=== PATIENT | female | born 1970 | race Hispanic/Latino ===

== ENCOUNTER 2019-06-24 21:04 | Observation (INO) | payer OTHER, SELFPAY ==
[2019-06-24] MEDS ORDERED: ASPIRIN 81 MG CHEWABLE TABLET ONE (21:37)
[2019-06-24] MEDS ORDERED: FAMOTIDINE 20 MG/2 ML VIAL IV ONE (21:37)
--- NOTE | 2019-06-24 21:41 | EDPHYS ---
Physician Documentation [facility] Name: Natalia Amaral Age: 48 yrs Sex: Female : 1970 Arrival Date: 06/24/2019 Time: 21:05 Bed 13 Private MD: VALERIA Physician David Marquez HPI: 06/24 21:21 This 48 yrs old Female presents to ER via Wheelchair with complaints of Chest brianda Pain. 21:21 The patient or guardian reports chest pain that is located primarily in the substernal brianda area. Onset: 1 day(s) ago. The pain radiates to Associated signs and symptoms: The patient has no apparent associated signs or symptoms. The chest pain is described as a heaviness, a pressure. Duration: The patient or guardian reports multiple episodes, with no pattern. Modifying factors: The symptoms are alleviated by nothing. the symptoms are aggravated by nothing. breathing. Severity of pain: At its worst the pain was mild moderate in the emergency department the pain has improved mildly. The patient has not experienced similar symptoms in the past. Historical: - Allergies: 21:21 No Known Allergies; ca1 - Home Meds: 21:21 glimepiride oral [Active]; metformin 500 mg Oral tab 1 tab 2 times per day [Active]; ca1 venlafaxine 150 mg Oral tr24 1 tab once daily [Active]; - PMHx: 21:21 Anemia; Depression; Diabetes - NIDDM; Ovarian cyst; ca1 - PSHx: 21:21 ablation; Cholecystectomy; ca1 - Immunization history:: Adult Immunizations up to date, Pneumococcal vaccine is not up to date, Flu vaccine is not up to date. - Social history:: Smoking status: Patient uses tobacco products, smokes one pack cigarettes per day. - Ebola Screening: : Patient negative for fever greater than or equal to 101.5 degrees Fahrenheit, and additional compatible Ebola Virus Disease symptoms Patient denies exposure to infectious person Patient denies travel to an Ebola-affected area in the 21 days before illness onset No symptoms or risks identified at this time. - Family history:: not pertinent. ROS: 21:21 Constitutional: Negative for fever, chills, and weight loss, Eyes: Negative for injury, brianda pain, redness, and discharge, ENT: Negative for injury, pain, and discharge, Neck: Negative for injury, pain, and swelling, Abdomen/GI: Negative for abdominal pain, nausea, vomiting, diarrhea, and constipation, Back: Negative for injury and pain, : Negative for injury, bleeding, discharge, and swelling, MS/Extremity: Negative for injury and deformity, Skin: Negative for injury, rash, and discoloration, Neuro: Negative for headache, weakness, numbness, tingling, and seizure, Psych: Negative for depression, anxiety, suicide ideation, homicidal ideation, and hallucinations, Allergy/Immunology: Negative for hives, rash, and allergies, Endocrine: Negative for neck swelling, polydipsia, polyuria, polyphagia, and marked weight changes, Hematologic/Lymphatic: Negative for swollen nodes, abnormal bleeding, and unusual bruising. 21:21 Cardiovascular: Positive for chest pain. 21:21 Respiratory: Positive for pleurisy, of the chest, shortness of breath. Exam: 21:21 Constitutional: This is a well developed, well nourished patient who is awake, alert, brianda and in no acute distress. Head/Face: Normocephalic, atraumatic. Eyes: Pupils equal round and reactive to light, extra-ocular motions intact. Lids and lashes normal. Conjunctiva and sclera are non-icteric and not injected. Cornea within normal limits. Periorbital areas with no swelling, redness, or edema. ENT: Nares patent. No nasal discharge, no septal abnormalities noted. Tympanic membranes are normal and external auditory canals are clear. Oropharynx with no redness, swelling, or masses, exudates, or evidence of obstruction, uvula midline. Mucous membranes moist. Neck: Trachea midline, no thyromegaly or masses palpated, and no cervical lymphadenopathy. Supple, full range of motion without nuchal rigidity, or vertebral point tenderness. No Meningismus. Chest/axilla: Normal chest wall appearance and motion. Nontender with no deformity. No lesions are appreciated. Cardiovascular: Regular rate and rhythm with a normal S1 and S2. No gallops, murmurs, or rubs. Normal PMI, no JVD. No pulse deficits. Respiratory: Lungs have equal breath sounds bilaterally, clear to auscultation and percussion. No rales, rhonchi or wheezes noted. No increased work of breathing, no retractions or nasal flaring. Abdomen/GI: Soft, non-tender, with normal bowel sounds. No distension or tympany. No guarding or rebound. No evidence of tenderness throughout. Back: No spinal tenderness. No costovertebral tenderness. Full range of motion. Skin: Warm, dry with normal turgor. Normal color with no rashes, no lesions, and no evidence of cellulitis. MS/ Extremity: Pulses equal, no cyanosis. Neurovascular intact. Full, normal range of motion. Neuro: Awake and alert, GCS 15, oriented to person, place, time, and situation. Cranial nerves II-XII grossly intact. Motor strength 5/5 in all extremities. Sensory grossly intact. Cerebellar exam normal. Normal gait. Psych: Awake, alert, with orientation to person, place and time. Behavior, mood, and affect are within normal limits. 21:21 Musculoskeletal/extremity: DVT Exam: No signs of deep vein thrombosis. no pain, no swelling, no tenderness, negative Homans' sign noted on exam, no appreciated bluish discoloration, no erythema, no increased warmth. Vital Signs: 21:21 BP 135 / 82; Pulse 88; Resp 16 S; Temp 98.3(O); Pulse Ox 98% on R/A; Weight 104.33 kg ca1 (R); Height 5 ft. 7 in. (170.18 cm) (R); Pain 7/10; 22:00 BP 125 / 76; Pulse 78; Resp 16; Pulse Ox 99% on R/A; dm5 22:45 BP 139 / 77; Pulse 79; Resp 16; Pulse Ox 100% on R/A; dm5 23:30 BP 140 / 88; Pulse 78; Resp 16; Pulse Ox 98% on R/A; dm5 06/25 00:33 Temp 98.2(O); lp1 06/24 21:21 Body Mass Index 36.02 (104.33 kg, 170.18 cm) ca1 MDM: 06/24 21:[address] [facility] 21:37 Data reviewed: vital signs, nurses notes, lab test result(s), EKG, radiologic studies, [facility] CT scan, plain films. 06/24 21:20 Order name: Basic Metabolic Panel; Complete Time: 22:47 [facility] 06/24 21:20 Order name: CBC with Diff; Complete Time: 21:52 [facility] 06/24 21:20 Order name: LFT's; Complete Time: 22:47 [facility] 06/24 21:20 Order name: Magnesium; Complete Time: 22:47 [facility] 06/24 21:20 Order name: NT PRO-BNP; Complete Time: 22:47 [facility] 06/24 21:20 Order name: PT-INR; Complete Time: 21:52 [facility] 06/24 21:20 Order name: Troponin (emerg Dept Use Only); Complete Time: 22:47 [facility] 06/24 21:20 Order name: XRAY Chest (1 view) [facility] 06/24 21:20 Order name: Lipase; Complete Time: 22:47 [facility] 06/24 21:20 Order name: CT Chest For PE Angio [facility] 06/24 22:22 Order name: Urine Dipstick--Ancillary (enter results); Complete Time: 00:28 pr 06/24 22:22 Order name: Urine --Ancillary (enter results); Complete Time: 00:28 pr 06/24 21:20 Order name: EKG; Complete Time: 21:22 [facility] 06/24 21:20 Order name: Cardiac monitoring; Complete Time: 21:28 [facility] 06/24 21:20 Order name: EKG - Nurse/Tech; Complete Time: 21:29 [facility] 06/24 21:20 Order name: IV Saline Lock; Complete Time: 21:44 [facility] 06/24 21:20 Order name: Labs collected and sent; Complete Time: 21:45 [facility] 06/24 21:20 Order name: O2 Per Protocol; Complete Time: 21:29 [facility] 06/24 21:20 Order name: O2 Sat Monitoring; Complete Time: 21:29 [facility] 06/24 21:20 Order name: Urine Dipstick-Ancillary (obtain specimen); Complete Time: 22:22 [facility] 06/24 21:20 Order name: Urine Test (obtain specimen); Complete Time: 22:22 [facility] Administered Medications: 21:40 Drug: Aspirin Chewable Tablet 324 mg Route: PO; jb4 22:10 Follow up: Response: No adverse reaction jb4 21:40 Drug: Pepcid 20 mg Route: IVP; Site: right antecubital; jb4 22:10 Follow up: Response: No adverse reaction jb4 22:22 Drug: Lopressor 25 mg Route: PO; jb4 23:00 Follow up: Response: No adverse reaction jb4 22:22 Drug: Lovenox 100 mg Route: Sub-Q; Site: right lower abdomen; jb4 23:00 Follow up: Response: No adverse reaction jb4 Disposition: 06/24/19 21:40 Hospitalization ordered by Cabrera Lorenzana for Observation. Preliminary diagnosis are Chest pain on breathing, Chest pain, unspecified, Type 2 diabetes mellitus, Tobacco use. - Bed requested for Telemetry/MedSurg (observation). - Status is Observation. dm5 - Condition is Stable. - Problem is new. - Symptoms have improved. UTI on Admission? No Signatures: Dispatcher [employer] EDAnita Feliciano, RN RN dm5 Cher Kent RN RN David Villanueva MD MD cha Page, Corey, PA PA Yamil Richey, RN ANAND jb4 Caridad George RN RN ca1 Corrections: (The following items were deleted from the chart) 06/25 00:08 06/24 21:40 Hospitalization Ordered by Cabrera Lorenzana MD for Observation. Preliminary diagnosis is Chest pain on breathing; Chest pain, unspecified; Type 2 diabetes mellitus; Tobacco use. Bed requested for Telemetry/MedSurg (observation). Status is Observation. Condition is Stable. Problem is new. Symptoms have improved. UTI on Admission? No. brianda 06/25 00:58 00:08 06/24/2019 21:40 Hospitalization Ordered by Cabrera Lorenzana MD for Observation. dm5 Preliminary diagnosis is Chest pain on breathing; Chest pain, unspecified; Type 2 diabetes mellitus; Tobacco use. Bed requested for Telemetry/MedSurg (observation). Status is Observation. Condition is Stable. Problem is new. Symptoms have improved. UTI on Admission? No. mw
--- NOTE | 2019-06-24 21:41 | ER ---
Nurse's Notes [facility] Name: Natalia Amaral Age: 48 yrs Sex: Female : 1970 Arrival Date: 06/24/2019 Time: 21:05 Bed 13 Private MD: Diagnosis: Chest pain on breathing;Chest pain, unspecified;Type 2 diabetes mellitus;Tobacco use Presentation: 06/24 21:17 Presenting complaint: Patient states: Mid sternal chest pain described as tightness ca1 that radiates to the back started 2-3 days ago. Worse today. Pain is aggravated by deep breathing and associated with SOB. Denies trauma to the chest and lifting heavy objects. Transition of care: patient was not received from another setting of care. Onset of symptoms was June 24, 2019. Risk Assessment: Do you want to hurt yourself or someone else? Patient reports no desire to harm self or others. Initial Sepsis Screen: Does the patient meet any 2 criteria? No. Patient's initial sepsis screen is negative. Does the patient have a suspected source of infection? No. Patient's initial sepsis screen is negative. Care prior to arrival: None. 21:17 Method Of Arrival: Wheelchair ca1 21:17 Acuity: ESPERANZA 3 ca1 Historical: - Allergies: 21:21 No Known Allergies; ca1 - Home Meds: 21:21 glimepiride oral [Active]; metformin 500 mg Oral tab 1 tab 2 times per day [Active]; ca1 venlafaxine 150 mg Oral tr24 1 tab once daily [Active]; - PMHx: 21:21 Anemia; Depression; Diabetes - NIDDM; Ovarian cyst; ca1 - PSHx: 21:21 ablation; Cholecystectomy; ca1 - Immunization history:: Adult Immunizations up to date, Pneumococcal vaccine is not up to date, Flu vaccine is not up to date. - Social history:: Smoking status: Patient uses tobacco products, smokes one pack cigarettes per day. - Ebola Screening: : Patient negative for fever greater than or equal to 101.5 degrees Fahrenheit, and additional compatible Ebola Virus Disease symptoms Patient denies exposure to infectious person Patient denies travel to an Ebola-affected area in the 21 days before illness onset No symptoms or risks identified at this time. - Family history:: not pertinent. Screenin:10 Abuse screen: Denies threats or abuse. Nutritional screening: No deficits noted. dm5 Tuberculosis screening: No symptoms or risk factors identified. Fall Risk None identified. Assessment: 21:10 General: Appears in no apparent distress. uncomfortable, Behavior is calm, cooperative, dm5 appropriate for age. Pain: Complains of pain in left lateral anterior chest Pain does not radiate. Pain currently is 7 out of 10 on a pain scale. Quality of pain is described as stabbing. Neuro: Level of Consciousness is awake, alert, obeys commands, Oriented to person, place, time, situation. Cardiovascular: Patient's skin is warm and dry. Respiratory: Airway is patent Respiratory effort is even, unlabored, Respiratory pattern is regular, symmetrical. GI: No signs and/or symptoms were reported involving the gastrointestinal system. : No signs and/or symptoms were reported regarding the genitourinary system. EENT: No signs and/or symptoms were reported regarding the EENT system. Derm: Skin is intact, Skin is pink, warm \T\ dry. Musculoskeletal: Circulation, motion, and sensation intact. Range of motion: intact in all extremities. 22:10 Reassessment: Patient appears in no apparent distress at this time. Patient and/or dm5 family updated on plan of care and expected duration. Pain level reassessed. Patient is alert, oriented x 3, equal unlabored respirations, skin warm/dry/pink. 23:00 Reassessment: Patient appears in no apparent distress at this time. Patient and/or dm5 family updated on plan of care and expected duration. Pain level reassessed. Patient is alert, oriented x 3, equal unlabored respirations, skin warm/dry/pink. 23:59 Reassessment: Patient appears in no apparent distress at this time. Patient and/or dm5 family updated on plan of care and expected duration. Pain level reassessed. Patient is alert, oriented x 3, equal unlabored respirations, skin warm/dry/pink. Vital Signs: 21:21 BP 135 / 82; Pulse 88; Resp 16 S; Temp 98.3(O); Pulse Ox 98% on R/A; Weight 104.33 kg ca1 (R); Height 5 ft. 7 in. (170.18 cm) (R); Pain 7/10; 22:00 BP 125 / 76; Pulse 78; Resp 16; Pulse Ox 99% on R/A; dm5 22:45 BP 139 / 77; Pulse 79; Resp 16; Pulse Ox 100% on R/A; dm5 23:30 BP 140 / 88; Pulse 78; Resp 16; Pulse Ox 98% on R/A; dm5 06/25 00:33 Temp 98.2(O); lp1 06/24 21:21 Body Mass Index 36.02 (104.33 kg, 170.18 cm) ca1 ED Course: 06/24 21:05 Patient arrived in ED. cl3 21:08 David Marquez MD is Attending Physician. brianda 21:10 Patient has correct armband on for positive identification. Placed in gown. Bed in low jb4 position. Call light in reach. Side rails up X 1. quality assurance monitor final on. Pulse ox on. NIBP on. 21:20 Triage completed. ca1 21:21 Arm band placed on right wrist. ca1 21:28 Yamil Bowden, RN is Primary Nurse. jb4 21:30 Radiology exam delayed due to lab results not completed at this time. (BUN/Creatinine) bq test not completed at this time. 21:38 Cabrera Lorenzana MD is Hospitalizing Provider. brianda 21:41 Inserted saline lock: 20 gauge in right antecubital area, using aseptic technique. oe Blood collected. 22:13 XRAY Chest (1 view) In Process Unspecified. EDMS 23:18 CT Chest For PE Angio In Process Unspecified. EDMS 06/25 00:30 No provider procedures requiring assistance completed. Patient admitted, IV remains in lp1 place. Patient maintains SpO2 saturation greater than 95% on room air. Administered Medications: 06/24 21:40 Drug: Aspirin Chewable Tablet 324 mg Route: PO; jb4 22:10 Follow up: Response: No adverse reaction jb4 21:40 Drug: Pepcid 20 mg Route: IVP; Site: right antecubital; jb4 22:10 Follow up: Response: No adverse reaction jb4 22:22 Drug: Lopressor 25 mg Route: PO; jb4 23:00 Follow up: Response: No adverse reaction jb4 22:22 Drug: Lovenox 100 mg Route: Sub-Q; Site: right lower abdomen; jb4 23:00 Follow up: Response: No adverse reaction jb4 Outcome: 21:40 Decision to Hospitalize by Provider. brianda 06/25 00:33 Admitted to Med/surg family with patient, via wheelchair, room 209, with chart, Report lp1 called to ANAND [place] Condition: stable Instructed on the need for admit. 00:58 Patient left the ED. dm5 Signatures: Dispatcher [employer] EDAnita Feliciano, RN RN dm5 David Marquez MD MD cha Quilty, Betty bq Pena, Laura, RN RN lp1 Yamil Bowden RN RN jb4 John Barrett Cheryl, RN RN ca1 Brad Bourne cl3
[2019-06-24 21:49] LABS: Absolute Lymphocytes (CBC) 4.1 K/uL (0.7-4.9); Basophils % 1.4 % (0-1.3); Hematocrit 41.7 % (36.0-45.0); Lymphocytes % 39.9 % (15.3-44.8); MPV 9.2 fL (7.6-11.3); RBC Red Blood Cell Count 4.67 M/uL (3.86-4.86)
[2019-06-24] MEDS ORDERED: METOPROLOL TAR 25 MG TAB ONE (22:18)
[2019-06-24] MEDS ORDERED: ENOXAPARIN 100 MG/ML SYR SQ ONE (22:18)
[2019-06-24 22:40] LABS: ALT/SGPT 41 U/L (12-78); AST/SGOT 23 U/L (15-37); Albumin 3.8 g/dL (3.4-5.0); Alkaline Phosphatase 127 U/L (45-117); BUN Blood Urea Nitrogen 13 mg/dL (7-18); Bicarbonate 29 mmol/L (21-32); Bilirubin Direct < 0.1 mg/dL (0-0.2); Bilirubin Total 0.3 mg/dL (0.2-1.0); Glucose Level 97 mg/dL (74-106); Lipase 254 U/L (73-393); NT PRO-BNP 27 pg/mL (<125); Potassium 3.8 mmol/L (3.5-5.1); Protein, Total 8.2 g/dL (6.4-8.2); Sodium Level 141 mmol/L (136-145); Troponin (Emerg Dept Use Only) < 0.02 ng/mL (0.0-0.045)
[2019-06-24 23:06] LABS: Urine Blood NEGATIVE (NEG); Urine Glucose NEGATIVE (NEG); Urine Protein NEGATIVE (NEG)
[2019-06-25] MEDS ORDERED: ALPRAZOLAM 0.25 MG TABLET PO PRN
[2019-06-25] MEDS ORDERED: ACETAMINOPHEN 500 MG TAB PO PRN
[2019-06-25 01:26] VITALS: BMI 38.1
[2019-06-25] MEDS: MORPHINE 4 MG/ML SYR IV PRN ×2 (01:35→05:49)
[2019-06-25 01:57] VITALS: O2SAT 96
--- NOTE | 2019-06-25 02:47 | P.HP ---
Certification for Inpatient Patient admitted to: Observation With expected LOS: <2 Midnights Patient will require the following post-hospital care: None Practitioner: I am a practitioner with admitting privileges, knowledge of patient current condition, hospital course, and medical plan of care. Services: Services provided to patient in accordance with Admission requirements found in Title 42 Section 412.3 of the Code of Federal Regulations Patient History Date of Service: 06/25/19 Reason for admission: Chest pain rule out acute coronary syndrome History of Present Illness: Patient is a 48-year-old who came to the hospital with chest discomfort. Patient has a lot of social stress with her children. She worries about the mildly timing she feels like this is causing extra stress in her life. She had a pain in her left sternal region which radiated down to her left arm. She decided to come into the hospital to have it evaluated. She will be admitted for further evaluation. Allergies No Known Allergies Allergy (Verified 06/25/19 00:44) Home Medications: Glimepiride 0.5 tab PO BID 06/25/19 Meloxicam 15 mg PO DAILY 06/25/19 Metformin HCl [Glucophage] 500 mg PO BIDWM 06/25/19 Venlafaxine HCl [Venlafaxine HCl ER] 75 mg PO DAILY 06/25/19 - Past Medical/Surgical History Has patient received pneumonia vaccine in the past: No Diabetic: Yes -: DM-2 -: Anemia -: Depression -: cholecystectomy >10yr ago -: uterine ablation 2010 - Family History Mother Medical History: Liver disease Notes: chirrosis of the liver - Social History Smoking Status: Heavy Tobacco smoker (>10 cigarettes/day) Alcohol use: Yes CD- Drugs: No Caffeine use: Yes Place of Residence: Home Review of Systems 10-point ROS is otherwise unremarkable Physical Examination - Vital Signs Temperature: 98.2 F Blood Pressure: 145/70 Pulse: 65 Respirations: 16 Pulse Ox (%): 96 - Physical Exam General: Alert, In no apparent distress, Oriented x3 HEENT: Atraumatic, PERRLA, Mucous membr. moist/pink, EOMI, Sclerae nonicteric Neck: Supple, 2+ carotid pulse no bruit, No LAD, Without JVD or thyroid abnormality Respiratory: Clear to auscultation bilaterally, Normal air movement Cardiovascular: Regular rate/rhythm, Normal S1 S2, No murmurs Gastrointestinal: Normal bowel sounds, Soft and benign, Non-distended, W/out succussion splash, W/out hepatosplenomegaly, No tenderness Musculoskeletal: No clubbing, No swelling, No tenderness Integumentary: No rashes Neurological: Normal gait, Normal speech, Normal strength at 5/5 x4 extr, Normal tone, Normal affect Lymphatics: No axilla or inguinal lymphadenopathy - Studies Laboratory Data (last 24 hrs) 06/24/19 21:34: PT 11.8, INR 1.00 06/24/19 21:34: WBC 10.2, Hgb 14.2, Hct 41.7, Plt Count 219 06/24/19 21:34: Sodium 141, Potassium 3.8, BUN 13, Creatinine 0.71, Glucose 97, Magnesium 2.0, Total Bilirubin 0.3, AST 23, ALT 41, Alkaline Phosphatase 127 H, Lipase 254 Assessment & Plan - Problems (Diagnosis) (1) Chest pain, rule out acute myocardial infarction Current Visit: Yes Status: Acute (2) DM2 (diabetes mellitus, type 2) Current Visit: Yes Status: Acute (3) HTN (hypertension) Current Visit: Yes Status: Acute Qualifiers: Hypertension type: essential hypertension Qualified Code(s): I10 - Essential (primary) hypertension - Plan Plan: 1. Serial troponins and EKG 2. Cardiology consultation 3. Echocardiogram and stress test in AM 4. Anti-platelet therapy, anti coagulation, beta-aleyda, statin, and O2 as needed 5. IV morphine for pain 6. Nitro p.r.n. 7. Continue with strict blood pressure and blood sugar control 8. GI and DVT prophylaxis Discharge Plan: Home Plan to discharge in: Greater than 2 days - Advance Directives Does patient have a Living Will: No Does patient have a Durable POA for Healthcare: No - Code Status/Comfort Care Code Status Assessed: Yes Code Status: Full Code Critical Care: No Time Spent Managing PTS Care (In Minutes): 45
--- NOTE | 2019-06-25 05:30 | EKG ---
Test Date: 2019-06-24 Test Time: 21:10:46 Locator: ENRIQUE MEASUREMENT RESULTS: Intervals: Rate: 90 ID: [id number] QRSD: 86 QT: 358 QTc: 437 Hume: P: 49 ID: [id number] QRS: 35 T: 59 INTERPRETIVE STATEMENTS: Normal sinus rhythm Normal ECG Compared to ECG 01/15/2011 08:05:24 No significant changes Electronically Signed On 06-25-19 05:30:06 PCAT INSTRUCTOR by Osbaldo Andre
[2019-06-25] MEDS ORDERED: INFLUENZA VACCINE (for 3y+) 0.5 ML DOSE IMVAC ONE (06:00)
[2019-06-25] MEDS: METOPROLOL TAR 50 MG TAB PO SCH ×2 (06:23→12:02)
[2019-06-25 06:59] LABS: HDL Cholesterol 37 mg/dL (40-60); LDL Cholesterol, Calculated 74 (<130); Troponin I < 0.02 ng/mL (0.0-0.045)
[2019-06-25] MEDS ORDERED: REGADENOSON 0.4 MG/5 ML SYR IV ONE (08:20)
--- NOTE | 2019-06-25 08:24 | RAD REPORT ---
EXAM DESCRIPTION: RAD - Chest Single View - 06/24/2019 10:13 pm CLINICAL HISTORY: CHEST PAIN Chest pain. COMPARISON: Chest Pa And Lat (2 Views) dated 02/18/2017; CHEST PA AND LAT 2 VIEW dated 09/24/2010 FINDINGS: Portable technique limits examination quality. The lungs are grossly clear. The heart is normal in size. No displaced fractures. IMPRESSION: No acute intrathoracic process suspected.
--- NOTE | 2019-06-25 08:56 | P.DS ---
Discharge Date: 06/25/19 Disposition: ROUTINE DISCHARGE Discharge Condition: GOOD Reason for Admission: Chest pain rule out acute coronary syndrome - Problems (1) Chest pain, rule out acute myocardial infarction Current Visit: Yes Status: Acute (2) DM2 (diabetes mellitus, type 2) Current Visit: Yes Status: Acute (3) HTN (hypertension) Current Visit: Yes Status: Acute Qualifiers: Hypertension type: essential hypertension Qualified Code(s): I10 - Essential (primary) hypertension Brief History of Present Illness: Patient is a 48-year-old who came to the hospital with chest discomfort. Patient has a lot of social stress with her children. She worries about the mildly timing she feels like this is causing extra stress in her life. She had a pain in her left sternal region which radiated down to her left arm. She decided to come into the hospital to have it evaluated. She will be admitted for further evaluation. Hospital Course: Had a long discussion with patient and most of her symptoms seemed to be were related to anxiety issues-especially with her children. She has a stress test pending today and if this is negative she is stable for discharge home. She will need to speak with a counselor regarding coping mechanisms to deal with her anxiety regarding her children. Hopefully the counseling sessions will help her. Anticipate discharge home today. Vital Signs/Physical Exam: Temp Pulse Resp BP Pulse Ox 97.5 F 64 18 118/55 L 97 06/25/19 04:00 06/25/19 06:23 06/25/19 04:00 06/25/19 06:23 06/25/19 04:00 General: Alert, In no apparent distress, Oriented x3 Laboratory Data at Discharge: WBC 10.2 K/uL (4.3-10.9) 06/24/19 21:34 Hgb 14.2 g/dL (12.0-15.0) 06/24/19 21:34 Hct 41.7 % (36.0-45.0) 06/24/19 21:34 Plt Count 219 K/uL (152-406) 06/24/19 21:34 PT 11.8 SECONDS (9.5-12.5) 06/24/19 21:34 INR 1.00 06/24/19 21:34 Sodium 141 mmol/L (136-145) 06/24/19 21:34 Potassium 3.8 mmol/L (3.5-5.1) 06/24/19 21:34 BUN 13 mg/dL (7-18) 06/24/19 21:34 Creatinine 0.71 mg/dL (0.55-1.3) 06/24/19 21:34 Glucose 97 mg/dL (74-106) 06/24/19 21:34 Magnesium 2.0 mg/dL (1.8-2.4) 06/24/19 21:34 Total Bilirubin 0.3 mg/dL (0.2-1.0) 06/24/19 21:34 AST 23 U/L (15-37) 06/24/19 21:34 ALT 41 U/L (12-78) 06/24/19 21:34 Alkaline Phosphatase 127 U/L (45-117) H 06/24/19 21:34 Troponin I < 0.02 ng/mL (0.0-0.045) 06/25/19 05:46 Triglycerides 399 mg/dL (<150) H 06/25/19 05:46 Cholesterol 191 mg/dL (<200) 06/25/19 05:46 HDL Cholesterol 37 mg/dL (40-60) L 06/25/19 05:46 Cholesterol/HDL Ratio 5.16 06/25/19 05:46 Lipase 254 U/L (73-393) 06/24/19 21:34 Home Medications: ALPRAZolam [Xanax*] 0.25 mg PO TID PRN #20 tab 06/25/19 Glimepiride 0.5 tab PO BID 06/25/19 Meloxicam 15 mg PO DAILY 06/25/19 Metformin HCl [Glucophage*] 500 mg PO BIDWM 06/25/19 Venlafaxine HCl [Venlafaxine HCl ER] 75 mg PO DAILY 06/25/19 New Medications: ALPRAZolam [Xanax*] 0.25 mg PO TID PRN #20 tab PRN Reason: Anxiety Patient Discharge Instructions: OK TO DC IV AND DC HOME. FOLLOW-UP WITH PRIMARY CARE PROVIDER IN 1-2 WEEKS. FOLLOW-UP WITH CARDIOLOGY IN 1-2 WEEKS. RETURN TO THE ER IF symptoms worsen. CALL or TEXT DR. FIELD AT [phone] IF ANY QUESTIONS REGARDING HOSPITAL STAY. PLEASE CALL THE FLOOR AT [phone] IF ANY MEDICATION OR NURSING QUESTIONS. Diet: ADA Activity: Fall precautions Time spent managing pt's care (in minutes): 25
[2019-06-25] MEDS ORDERED: ENOXAPARIN 40 MG/0.4 ML SQ SCH (09:00)
[2019-06-25] MEDS ORDERED: ASPIRIN EC 81 MG TAB PO SCH (09:00)
--- NOTE | 2019-06-25 10:36 | RAD REPORT ---
EXAM DESCRIPTION: Chest For Pe Angio CLINICAL HISTORY: Chest pain; Dyspnea TECHNIQUE: Contiguous axial images obtained through the chest during angiographic phase following th e uneventful administration of IV contrast. Coronal and oblique reformatted images were provided. MIP reformatted images were provided. This exam was performed according to our departmental dose-optimization program, which includes autom ated exposure control, adjustment of the mA and/or kV according to patient size and/or use of iterati ve reconstruction technique. COMPARISON: No prior exams provided for comparison. FINDINGS: Diagnostic quality: There is fair opacification of the pulmonary arterial tree. Motion art ifact degrades image quality and limits evaluation of segmental and subsegmental vessels. Lungs: No focal consolidation. Airways are patent. Pleura: No effusion. No pneumothorax. Heart and pericardium: The heart is enlarged. No pericardial effusion. Mediastinum and saúl: No pathologically enlarged lymph nodes. Lower neck and chest wall: Unremarkable Vessels: No pulmonary arterial filling defects. No thoracic aortic aneurysm. Upper abdomen: The liver is enlarged. Bones: Mild multilevel spondylosis. No acute fracture. IMPRESSION: 1. Somewhat suboptimal opacification of the pulmonary arterial tree as well as motion artifact which degrades image quality and limits evaluation of segmental and subsegmental vessels. No central pulmonary embolic disease identified. 2. Other findings as above. Electronically signed by: Stella Cyr MD 06/24/2019 11:43 PM ACCOUNT REVIEW SPECIALIST Due to temporary technical issues with the PACS/Fluency reporting system, reports are being signed by the in house radiologist as a courtesy to ensure prompt reporting. The interpreting radiologist is f ully responsible for the content of the report.
--- NOTE | 2019-06-25 11:56 | RAD REPORT ---
EXAM DESCRIPTION: NM - Rest Stress Cardiac Imaging - 06/25/2019 11:49 am CLINICAL HISTORY: CP Chest pain. COMPARISON: No comparisons TECHNIQUE: The patient was administered approximately 10mCi of Tc 99m Sestamibi prior to resting SPE CT imaging of the heart. The patient was then administered approximately 30 mCi of Tc 99m Sestamibi f ollowing exercise or pharmacologic stress. Multiplanar SPECT images were reviewed. FINDINGS: No stress induced ischemic defect is seen to suggest stress induced ischemia. No fixed def ect is seen to suggest hibernating myocardium or scarred myocardium. The end diastolic volume is 142 ml, the end systolic volume is 64 ml, and the ejection fraction is 55 %. IMPRESSION: No stress induced ischemia.
[2019-06-25 12:04] VITALS: BP 136/60
--- NOTE | 2019-06-25 12:43 | ECHO ---
HEIGHT: 5 ft 7 in WEIGHT: 243 lb 9.6 oz DATE OF STUDY: 06/25/[address]: Cabrera Lorenzana MD 2-DIMENSIONAL: YES M.MODE: YES DOPPLER: YES COLOR FLOW: YES TDS: NO PORTABLE: NO DEFINITY: NO BUBBLE STUDY: NO DIAGNOSIS: CHEST PAIN, RULE OUT ACUTE CORONARY SYNDROME CARDIAC HISTORY: CATHERIZATION: NO SURGERY: NO PROSTHETIC VALVE: NO PACEMAKER: NO MEASUREMENTS (cm) DIASTOLIC (NORMALS) SYSTOLIC (NORMALS) IVSd 1.2 (0.6-1.2) LA Diam 3.6 (1.9-4.0) LVEF 64% LVIDd 5.1 (3.5-5.7) LVIDs 3.3 (2.0-3.5) %FS 35% LVPWd 1.2 (0.6-1.2) Ao Diam 3.1 (2.0-3.7) 2 DIMENSIONAL ASSESSMENT: RIGHT ATRIUM: NORMAL LEFT ATRIUM: NORMAL RIGHT VENTRICLE: NORMAL LEFT VENTRICLE: NORMAL TRICUSPID VALVE: NORMAL MITRAL VALVE: NORMAL PULMONIC VALVE: NORMAL AORTIC VALVE: NORMAL PERICARDIAL EFFUSION: NONE AORTIC ROOT: NORMAL LEFT VENTRICULAR WALL MOTION: NORMAL DOPPLER/COLOR FLOW: PHYSOLOGIC TRICUSPID REGURGITATION. NORMAL RIGHT VENTRICULAR SYSTOLIC PRESSURE. COMMENTS: NORMAL 2D ECHOCARDIOGRAM WITH DOPPLER. TECHNOLOGIST: Jagdish LORA
--- NOTE | 2019-06-25 12:49 | TREADPHA ---
DX: CHEST PAIN Date of Study: 06/25/2019 Ht: 5 7 Wt: 243 lb 9.6 oz Consulting Physician: OPAL MEDICATIONS: TYLENOL, XANAX, ASPIRIN, LOVENOX, LOPRESSOR HISTORY: MEDICAL HISTORY OF NON INSULIN DEPENDENT DIABETES MELLITUS, HYPERTENSION. COMPLAINTS OF INTERMITTANT CHEST PAIN. PHYSICIAL EXAMINATION: RESTING B.P.: 132/88 RESTING H.R.: 60 RESTING EKG: NORMAL PROTOCOL: LEXISCAN EXERCISE TIME: 3:30 B.P. AT PEAK STRESS: 114/65 IMPRESSION: LEXISCAN STRESS TEST PERFORMED. CARDIOLITE INJECTED PER PROTOCOL. NO SUPRAVENTRICULAR, VENTRICULAR TACHYCARDIA AND NO ARRHYTHMIAS NOTED. PATIENT DENIED CHEST PAIN. TOLERATED WELL. PLEASE SEE NUCLEAR MEDICINE REPORT. NON DIAGNOSTIC EKG WITH LEXISCAN STRESS.
[2019-06-25 14:09] VITALS: TEMP 97.1
== END 2019-06-25 14:09 | disposition home or self-care (01) ==
LOC: ER 21:04 → 2ND 06-25
PROVIDERS: ADMIT Hospitalist; ATTEND Hospitalist
DX: R07.9 Chest pain, unspecified (principal); E11.9 Type 2 diabetes mellitus without complications; F32.9 Major depressive disorder, single episode, unspecified; I10 Essential (primary) hypertension; F41.9 Anxiety disorder, unspecified
CPT/HCPCS: 36415; 71045; 71275; 78452; 80048; 80061; 80076; 81003; 81025; 83690; 83735; 83880; 84484; 85025; 85610; 93005; 93017; 93306; 96372; 96374; 99285; A9500; G0378; J1650; J2785; Q9967

== ENCOUNTER 2023-02-18 14:37 | Emergency (ER) | payer BC, OTHER ==
--- OUTSIDE RECORDS SUMMARY | 2023-02-18 14:40 | XMS REPORT | Continuity of Care Document ---
:[address] [facility] t Address [address] [place] [id number] Care Team Providers Name Role Phone Rony Rosa Attending Clinician Unavailable Problems This patient has no known problems. Allergies, Adverse Reactions, Alerts This patient has no known allergies or adverse reactions. Medications This patient has no known medications. Procedures This patient has no known procedures. Encounters Start End Encounter Admission Attending Care Care Encounter Source Date/Time Date/Time Type Type Clinicians Facility Department ID 2023-02-01 Outpatient Roas, [facility] [id number] Common 09:14:01 Rony [id number] [facility] 2023-01-05 Outpatient Rosa, [facility] [id number] Common 16:26:00 Rony [id number] [facility] 2022-11-19 Outpatient Rosa, [facility] [id number] Common 11:45:01 Rony [id number] [facility] 2022-11-18 Outpatient Rosa, [facility] [id number] Common 15:05:01 Rony [id number] [facility] 2022-10-18 Outpatient Rosa, [facility] [id number] Common 08:08:02 Rony [id number] [facility] Results This patient has no known results.
[2023-02-18 15:12] LABS: Absolute Lymphocytes (CBC) 3.2 K/uL (0.7-4.9); Hematocrit 41.6 % (36.0-45.0); Lymphocytes % 38.5 % (15.3-44.8); MCV 87.9 fL (80-100); MPV 7.9 fL (7.6-11.3); Platelets 191 thou/uL (152-406); RBC Red Blood Cell Count 4.74 M/uL (3.86-4.86)
[2023-02-18] MEDS ORDERED: FLEET ENEMA ADULT PR ONE (15:15)
[2023-02-18] MEDS ORDERED: NA CHLORIDE 0.9% 1,000 ML ONE (15:16)
[2023-02-18 15:25] LABS: Albumin 3.6 g/dL (3.4-5.0); Bilirubin Total 0.3 mg/dL (0.2-1.0); Potassium 3.7 mEq/L (3.5-5.1); Protein, Total 7.9 g/dL (6.4-8.2)
--- NOTE | 2023-02-18 15:48 | RAD REPORT ---
EXAM DESCRIPTION: CTAbdomen Pelvis W Contrast - 02/18/2023 3:38 pm CLINICAL HISTORY: Abdominal pain. Constipation;Abdominal distention COMPARISON: <Comparisons> TECHNIQUE: Biphasic CT imaging of the abdomen and pelvis was performed with 100 ml non-ionic IV cont rast. All CT scans are performed using dose optimization technique as appropriate and may include automated exposure control or mA/KV adjustment according to patient size. FINDINGS: The lung bases are clear. The liver is prominent in size with nodular contour. Cholecystectomy clips. Spleen, pancreas, adrenal glands and kidneys are within normal limits. No bowel obstruction, free air, free fluid or abscess. Prominent sigmoid diverticulosis coli with sub tle reticulation of the adjacent fat suggests acute diverticulitis. Moderate stool is present through out the colon. The appendix is normal. No evidence of significant lymphadenopathy. No suspicious bony findings. IMPRESSION: Sigmoid acute diverticulitis is suspected. Following appropriate therapy, colonoscopy wo uld be recommended for followup direct visualization. Moderate stool is present throughout the colon.
[2023-02-18] MEDS ORDERED: CIPROFLOXACIN 400mg IV 400 MG/200 ML BAG IV ONE (16:44)
[2023-02-18] MEDS ORDERED: METRONIDAZOLE 500mg IVPB 500 MG/100 ML BAG IV ONE (16:44)
--- NOTE | 2023-02-18 16:48 | ER ---
Nurse's Notes [facility] Name: Natalia Amaral Age: 52 yrs Sex: Female : 1970 Arrival Date: 02/18/2023 Time: 14:37 Bed 17 Private MD: Diagnosis: Constipation, unspecified;Diverticulitis of large intestine without perforation or abscess without bleeding Presentation: 02/18 14:44 Chief complaint: Patient states: Constipation, no bm for 4 days. Denies pain but feels nj1 "bloated". No vomiting. Call PCP, advised to come to ED for enema and imaging. Recently started on ozempic (2 months ago). 14:44 Method Of Arrival: Ambulatory [facility] 14:44 Coronavirus screen: Vaccine status: Patient reports being unvaccinated. Ebola Screen: [facility] Patient denies travel to an Ebola-affected area in the 21 days before illness onset. Initial Sepsis Screen: Does the patient meet any 2 criteria? No. Patient's initial sepsis screen is negative. Does the patient have a suspected source of infection? No. Patient's initial sepsis screen is negative. Risk Assessment: Do you want to hurt yourself or someone else? Patient reports no desire to harm self or others. Onset of symptoms was January 2023. 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 - Social history:: Smoking status: Patient reports the use of cigarette tobacco products, smokes one pack cigarettes per day. - Family history:: not pertinent. - Hospitalizations: : No recent hospitalization is reported. Screenin:01 [facility] ED Fall Risk Assessment (Adult) History of falling in the last 3 months, mb9 including since admission No falls in past 3 months (0 pts) Confusion or Disorientation No (0 pts) Intoxicated or Sedated No (0 pts) Impaired Gait No (0 pts) Mobility Assist Device Used No (0 pt) Altered Elimination No (0 pt) Score/Fall Risk Level 0 - 2 = Low Risk Oriented to surroundings, Maintained a safe environment, Educated pt \\T\\ family on fall prevention, incl call for assistance when getting out of bed. Abuse screen: Denies threats or abuse. Nutritional screening: No deficits noted. Tuberculosis screening: No symptoms or risk factors identified. Assessment: 15:20 General: Appears in no apparent distress. Behavior is calm, cooperative. Pain: Denies mb9 pain. Neuro: Barajas Agitation-Sedation Scale (RASS): 0 - Alert and Calm Level of Consciousness is awake, alert, obeys commands, Oriented to person, place, time, situation, Appropriate for age. Cardiovascular: Heart tones S1 S2 present Patient's skin is warm and dry. Respiratory: Airway is patent Respiratory effort is even, unlabored, Respiratory pattern is regular, symmetrical, Breath sounds are clear bilaterally. GI: Abdomen is round non-distended, Bowel sounds present X 4 quads. Abd is soft Abd is non tender X 4 quads Reports constipation, since 4 days ago. Derm: Skin is pink, warm \\T\\ dry. Musculoskeletal: Range of motion: intact in all extremities. 16:20 Reassessment: No changes from previously documented assessment. Patient and/or family mb9 updated on plan of care and expected duration. Pain level reassessed. Patient is alert, oriented x 3, equal unlabored respirations, skin warm/dry/pink. 16:49 Reassessment: discharge pending completion of antibiotics. mb9 17:11 Reassessment: Patient and/or family updated on plan of care and expected duration. Pain mb9 level reassessed. Patient is alert, oriented x 3, equal unlabored respirations, skin warm/dry/pink. Patient states feeling better. Patient states symptoms have improved. 18:03 Reassessment: Patient and/or family updated on plan of care and expected duration. Pain mb9 level reassessed. Patient is alert, oriented x 3, equal unlabored respirations, skin warm/dry/pink. Patient states feeling better. Patient states symptoms have improved. Vital Signs: 14:44 BP 124 / 74; Pulse 87; Resp 18; Temp 98.8; Pulse Ox 99% on R/A; Weight 97.98 kg; Height nj1 5 ft. 5 in. ; 16:15 BP 117 / 71; Pulse 71; Resp 16; Pulse Ox 100% on R/A; Pain 0/10; mb9 14:44 Body Mass Index 35.94 (97.98 kg, 165.1 cm) nj1 16:15 Pain Scale: Adult mb9 ED Course: 14:41 Patient arrived in ED. mg5 14:41 Jay Johnson MD is Attending Physician. rn 14:46 Sunni Foss, ANAND is Primary Nurse. mb9 14:46 Arm band placed on. mb9 14:55 No provider procedures requiring assistance completed. Inserted saline lock: 20 gauge mb9 in right forearm, using aseptic technique. 14:56 Triage completed. nj1 15:01 Placed in gown. Bed in low position. Call light in reach. Side rails up X 1. Client mb9 placed on continuous cardiac and pulse oximetry monitoring. NIBP monitoring applied. 15:01 CBC with Diff Sent. mb9 15:01 CMP Sent. mb9 15:01 Lipase Sent. mb9 15:37 CT Abd/Pelvis - IV Contrast Only In Process Unspecified. EDMS 16:47 Vinay Bell MD is Referral Physician. rn 18:03 IV discontinued, intact, bleeding controlled, No redness/swelling at site. Pressure mb9 dressing applied. Administered Medications: 15:20 Drug: NS 0.9% IV 1000 ml Route: IV; Rate: 1 bolus; Site: right forearm; mb9 16:37 Follow up: Response: No adverse reaction; IV Status: Completed infusion mb9 15:20 Drug: Fleet Enema SC 133 ml Route: SC; mb9 16:37 Follow up: Response: No adverse reaction mb9 16:37 Drug: metroNIDAZOLE IVPB 500 mg Volume: 100 ml; Route: IVPB; Rate: 200 ml/hr; Infused mb9 Over: 30 mins; Site: right forearm; 17:01 Follow up: Response: No adverse reaction; IV Status: Completed infusion; IV Intake: db 100ml 17:00 Drug: Ciprofloxacin IVPB 400 mg Volume: 200 ml; Route: IVPB; Infused Over: 60 mins; db Site: right antecubital; Medication: 15:02 VIS not applicable for this client. mb9 Intake: 17:01 IV: 100ml; Total: 100ml. db Outcome: 16:48 Discharge ordered by . rn 18:04 Discharged to home ambulatory. mb9 18:04 Condition: stable 18:04 Discharge instructions given to patient, Instructed on discharge instructions, follow up and referral plans. Demonstrated understanding of instructions, follow-up care, medications, Prescriptions given X 4. 18:04 Patient left the ED. mb9 Signatures: Dispatcher [employer] EDJay Houston MD MD rn Benton, Danielle, RN RN db Breneman, Mary Beth, RN RN mb9 Ina Butler RN RN [facility] Melany Cochran [facility]
--- NOTE | 2023-02-18 16:48 | EDPHYS ---
Physician Documentation [facility] Name: Natalia Amaral Age: 52 yrs Sex: Female : 1970 Arrival Date: 02/18/2023 Time: 14:37 Bed 17 Private MD: ED Physician Jay Johnson HPI: 02/18 14:55 This 52 yrs old Female presents to ER via Unassigned with complaints of rn Constipation. 14:55 The patient presents to the emergency department with Constipation. Onset: The rn symptoms/episode began/occurred 4 day(s) ago. Possible causes: unknown. The symptoms are aggravated by nothing. The symptoms are alleviated by nothing. Severity of symptoms: At their worst the symptoms were moderate in the emergency department the symptoms are unchanged. The patient has experienced similar episodes in the past. The patient has not recently seen a physician. Patient reports constipation and abdominal bloating. Last bowel movement 4 days ago. Has had problems with constipation before but never this bad. Denies abdominal pain. Tried MiraLAX at home without help. No fever. No vomiting.. 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 - Social history:: Smoking status: Patient reports the use of cigarette tobacco products, smokes one pack cigarettes per day. - Family history:: not pertinent. - Hospitalizations: : No recent hospitalization is reported. ROS: 14:55 Constitutional: Negative for fever, chills, and weight loss, Cardiovascular: Negative rn for chest pain, palpitations, and edema, Respiratory: Negative for shortness of breath, cough, wheezing, and pleuritic chest pain, Abdomen/GI: Positive for constipation and bloating MS/Extremity: Negative for injury and deformity, Skin: Negative for injury, rash, and discoloration, Neuro: Negative for headache, weakness, numbness, tingling, and seizure. Exam: 14:55 Constitutional: This is a well developed, well nourished patient who is awake, alert, rn and in no acute distress. Cardiovascular: Regular rate and rhythm. No pulse deficits. Respiratory: No increased work of breathing, no retractions or nasal flaring. Abdomen/GI: Soft, no focal tenderness, no masses Vital Signs: 14:44 BP 124 / 74; Pulse 87; Resp 18; Temp 98.8; Pulse Ox 99% on R/A; Weight 97.98 kg; Height nj1 5 ft. 5 in. ; 16:15 BP 117 / 71; Pulse 71; Resp 16; Pulse Ox 100% on R/A; Pain 0/10; mb9 14:44 Body Mass Index 35.94 (97.98 kg, 165.1 cm) nj1 16:15 Pain Scale: Adult mb9 MDM: 14:41 Patient medically screened. rn 16:46 Differential diagnosis: Nonspecific abd pain, diverticulitis, viral gastroenteritis, rn gastroenteritis, Dehydration, constipation. Data reviewed: vital signs, nurses notes, lab test result(s), radiologic studies, CT scan, and as a result, I will discharge patient. Counseling: I had a detailed discussion with the patient and/or guardian regarding the historical points, exam findings, and any diagnostic results supporting the discharge/admit diagnosis, lab results, radiology results, the need for outpatient follow up, to return to the emergency department if symptoms worsen or persist or if there are any questions or concerns that arise at home. Special discussion: Based on the patient's Hx, exam, and Dx evaluation, there is no indication for emergent surgery or inpatient Tx. It is understood by the patient/guardian that if the Sx's persist or worsen they need to return immediately for re-evaluation. I discussed with the patient/guardian in detail that at this point there is no indication for admission to the hospital. It is understood, however, that if the symptoms persist or worsen the patient needs to return immediately for re-evaluation. 16:46 ED course: Mild/subtle diverticulitis on imaging. Afebrile and normal vital signs. rn Normal white blood cell count. Will DC home with antibiotics and return precautions.. 02/18 14:53 Order name: CBC with Diff; Complete Time: 15:42 rn 02/18 14:53 Order name: CMP; Complete Time: 15:42 rn 02/18 14:53 Order name: Lipase; Complete Time: 15:42 rn 02/18 14:53 Order name: CT Abd/Pelvis - IV Contrast Only; Complete Time: 15:57 rn 02/18 14:53 Order name: IV Saline Lock; Complete Time: 15:01 rn 02/18 14:53 Order name: Labs collected and sent; Complete Time: 15:01 rn Administered Medications: 15:20 Drug: NS 0.9% IV 1000 ml Route: IV; Rate: 1 bolus; Site: right forearm; mb9 16:37 Follow up: Response: No adverse reaction; IV Status: Completed infusion mb9 15:20 Drug: Fleet Enema SD 133 ml Route: SD; mb9 16:37 Follow up: Response: No adverse reaction mb9 16:37 Drug: metroNIDAZOLE IVPB 500 mg Volume: 100 ml; Route: IVPB; Rate: 200 ml/hr; Infused mb9 Over: 30 mins; Site: right forearm; 17:01 Follow up: Response: No adverse reaction; IV Status: Completed infusion; IV Intake: db 100ml 17:00 Drug: Ciprofloxacin IVPB 400 mg Volume: 200 ml; Route: IVPB; Infused Over: 60 mins; db Site: right antecubital; Disposition Summary: 02/18/23 16:48 Discharge Ordered Location: Home rn Problem: new rn Symptoms: have improved rn Condition: Stable rn Diagnosis - Constipation, unspecified rn - Diverticulitis of large intestine without perforation or abscess without bleeding rn Followup: rn - With: Vinay Bell MD - When: As needed - Reason: Recheck today's complaints, Re-evaluation by your physician Discharge Instructions: - Discharge Summary Sheet rn - Constipation, Adult rn - Diverticulitis rn Forms: - Medication Reconciliation Form rn - Thank You Letter rn - Antibiotic 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 - Prescription Opioid Use rn - Patient Portal Instructions rn - Leadership Thank You Letter rn Prescriptions: - ondansetron 4 mg Oral Tablet,disintegrating - take 1 tablet by ORAL route every 8 hours As needed; 12 tablet; Refills: 0, rn Product Selection Permitted - Flagyl 500 mg Oral Tablet - take 1 tablet by ORAL route every 8 hours for 10 days; 30 tablet; Refills: 0, rn Product Selection Permitted - Cipro 500 mg Oral Tablet - take 1 tablet by ORAL route every 12 hours for 10 days; 20 tablet; Refills: 0, rn Product Selection Permitted - Tramadol 50 mg Oral Tablet - take 1 tablet by ORAL route every 8 hours as needed; 12 tablet; Refills: 0, rn Product Selection Permitted Signatures: Dispatcher [employer] Jay Hoyos MD MD rn Benton, Danielle RN RN db Sunni Foss RN RN mb9 Ina Butler RN RN nj1
[2023-02-18 18:21] VITALS: TEMP 98.8
[2023-02-18 18:22] VITALS: BP 117/71; O2SAT 100
== END 2023-02-18 18:04 | disposition home or self-care (01) ==
LOC: ER 14:37
DX: K59.00 Constipation, unspecified (principal); K57.32 Diverticulitis of large intestine without perforation or abscess without bleeding; I10 Essential (primary) hypertension; F17.210 Nicotine dependence, cigarettes, uncomplicated
CPT/HCPCS: 96365; 96361; 85025; 36415; 83690; 80053; 74177; 96375; 99284; Q9967; J0744; J7030